=== PATIENT | female | born 1995 | race African-American/Black ===

== ENCOUNTER 2024-04-19 09:20 | Emergency (ER) | payer OTHER ==
[~2024-04-19] VITALS: Ht 160 cm; Wt 80.0 kg
[2024-04-19 09:23] VITALS: TEMP 97.9
[2024-04-19] MEDS ORDERED: OXYC-38 PO (10:27)
[2024-04-19 10:30] VITALS: BP 119/63; PULSE 76; RESP 16; O2SAT 98
== END 2024-04-19 10:40 | disposition home or self-care (01) ==
LOC: EMS 09:23
DX: K08.89 Other specified disorders of teeth and supporting structures (principal)
CPT/HCPCS: 99283; Z7502

== ENCOUNTER 2024-05-16 10:21 | Emergency (ER) | payer OTHER ==
[~2024-05-16] VITALS: Ht 160 cm; Wt 77.3 kg
[~2024-05-16 10:21] MED LIST: OXYC-38 PO
[2024-05-16 11:01] LABS: COVID AG,FIA SOURCE NASAL SWAB
[2024-05-16 11:35] LABS: INFLUENZA TYPE A NEGATIVE FOR TYPE A (NEGATIVE); INFLUENZA TYPE B NEGATIVE FOR TYPE B (NEGATIVE); SARS-COV2 (COVID) ANTIGEN,FIA Negative (Negative)
[2024-05-16] MEDS ORDERED: AMOX-457 PO (11:48)
[2024-05-16 11:50] VITALS: BP 122/62; PULSE 99; RESP 18; TEMP 99; O2SAT 98
== END 2024-05-16 11:53 | disposition home or self-care (01) ==
LOC: EMS 10:22
DX: J06.9 Acute upper respiratory infection, unspecified (principal); H66.92 Otitis media, unspecified, left ear; B97.89 Other viral agents as the cause of diseases classified elsewhere; Z20.822 Contact with and (suspected) exposure to COVID-19
CPT/HCPCS: 87804; 99283